=== PATIENT | male | born 1965 | race Two or more races ===

== ENCOUNTER 2025-08-23 13:20 | Day surgery (SDC) | payer MEDICAID, SELFPAY ==
[2025-08-23] VITALS (16 sets, daily range): BP systolic 115–139; BP diastolic 70–99; PULSE 61–72; RESP 12–20; TEMP 36.6–36.8; O2SAT 92–100; BMI 25.0
--- NOTE | 2025-08-23 17:59 | SUR.PHASEII ---
1759: Pt. AAOx4, vitals stable, breathing unlabored, no complaint of pain or nausea, no dressing in place, no active bleed noted, report received from Kellie VELASQUEZ.
--- NOTE | 2025-08-23 18:40 | SUR.PHASEII ---
1840: Pt. AAOx4, vitals stable, breathing unlabored, no complaint of pain or nausea, no dressing in place, no active bleed noted, pt. tolerated sips of water well, pt. ambulated to wheelchair with steady gait and no assist, no complications. Gave discharge instructions to the pt. and his ride using e learning coordinator Jono, both verbalized understanding and had no further questions. Pt. left with all personal belongings.
== END 2025-08-23 18:40 | disposition home or self-care (01) ==
LOC: S2EX 17:55
PROVIDERS: PCP Family Medicine; Referring Provider Specialist; Visit Provider Specialist
PROC: 0DJD8ZZ Inspection of Lower Intestinal Tract, Via Natural or Artificial Opening Endoscopic (ICD-10-PCS; CPT 45378; principal; 2025-08-23 15:30)
DX: C18.9 Malignant neoplasm of colon, unspecified (principal); D12.2 Benign neoplasm of ascending colon; D12.0 Benign neoplasm of cecum; D49.0 Neoplasm of unspecified behavior of digestive system; K64.9 Unspecified hemorrhoids
CPT/HCPCS: 45385; A4649; J1200; J2250; J3010

== ENCOUNTER 2025-09-05 15:11 | Inpatient (IN) | payer MEDICAID, SELFPAY ==
--- NOTE | 2025-09-02 08:42 | PD.SURHP ---
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 He needs resection. He will undergo right hemicolectomy and Ileocolostomy laparoscopic possible open. Informed consent was obtained. Estimated length of stay 2 to 4 days. Past Medical History Past Medical History NEUROLOGIC: Negative Neurological Disorders or Seizures CARDIAC: Positive Cardiac Disorders and Hypertension; Negative Congestive Heart Failure RESPIRATORY: Negative Chronic Obstructive Pulmonary Disease (COPD) GASTROINTESTINAL: Positive Gastrointestinal Disorders, Gastrointestinal Bleed and Colorectal Cancer; Negative Hepatitis GENITOURINARY: Negative Renal Disease MUSCULOSKELETAL: Negative Musculoskeletal Disorders ENT: Negative History of ENT Problems ENDOCRINE: Negative Diabetes Mellitus Type 1 or Diabetes Mellitus Type 2 HEMATOLOGIC: Positive Blood Disorders and Anemia OTHER HISTORY: Positive Blood Transfusions and Colorectal Cancer; Negative Blood Transfusion Reaction or Anesthesia Reactions Family History FAMILY HISTORY: Positive Family Cancer; Negative Family Psychiatric Problems, Family Respiratory Disorders, Family Cardiac Disorders, Family Gastrointestinal Problems, Family Genitourinary Problems, Family Endocrine Disorders, Family Reproductive Disorders, Family Musculoskeletal Disorders, Family Surgery or Family Anesthesia Reaction Social History SMOKING STATUS: Never smoker Travel History EBOLA RISK: No Meds Home Medications and Allergies Home Medications ?Medication ?Instructions ?Recorded ?Confirmed ?Type cholecalciferol (vitamin D3) 125 125 mcg PO DAILY 09/02/25 09/05/25 History mcg (5,000 unit) capsule ferrous sulfate 325 mg (65 mg 325 mg PO BID 09/02/25 09/05/25 History iron) tablet (Iron (ferrous sulfate)) Allergies Allergy/AdvReac Type Severity Reaction Status Date / Time No Known Allergies Allergy Verified 09/05/25 06:27 Exam Constitutional Constitutional: no acute distress Routine HEENT Exam Head: Present normocephalic Eye: Present EOMI and PERRL ENT: Present mucous membranes moist Routine Neck Exam Neck: Present supple and trachea midline Routine Chest/Breast/Axilla Exam Chest wall: Absent tenderness or mass Routine Respiratory Exam Respiratory: Present chest non-tender, lungs clear, normal breath sounds and no resp distress; Absent respiratory distress Routine Cardiovascular Exam Cardiovascular: Present RRR Routine Abdominal Exam Abdominal: Present soft and normoactive bowel sounds Routine Extremities Exam Extremities: Present full ROM Routine Skin Exam Skin: Present intact, dry and warm Routine Neurological Exam Neurological: Present alert, oriented X3 and CN II-XII intact Routine Psychiatric Exam Psychiatric: Present normal affect and normal thought process Assessment & Plan Problem List (1) Adenocarcinoma of cecum: Status: Acute Plan Laparoscopic right hemicolectomy possible open. Informed consent was obtained. Quality Measures Quality Measures VTE prophylaxis
--- NOTE | 2025-09-02 09:33 | EKG_ITS ---
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
[2025-09-02 09:45] VITALS: BMI 25.4
[2025-09-02 10:34] LABS: Collection Type, Urine Clean Catch
[2025-09-02 10:59] LABS: Basophils # (Auto) 0.0 Thou/mm3 (0.0-0.2); Basophils % (Auto) 0 % (0-2.5); Eosinophils # (Auto) 0.3 Thou/mm3 (0.0-0.5); Eosinophils % (Auto) 4 % (0-10); Hematocrit 31.2 % (41.0-53.0); Hemoglobin 9.5 g/dL (13.5-16.0); Immature Granulocytes Auto 0.02 Thou/mm3 (0.00-0.00); Lymphocytes # (Auto) 1.5 Thou/mm3 (1.0-4.8); Lymphocytes % (Auto) 19 % (10-50); Mean Corpuscular HGB Conc 30.4 g/dl (31.0-37.0); Mean Corpuscular Hemoglobin 24.7 pg (25.0-35.0); Mean Corpuscular Volume 81 fL (80-100); Monocytes # (Auto) 0.6 Thou/mm3 (0.0-0.8); Monocytes % (Auto) 8 % (0-12); Neutrophils # (Auto) 5.4 Thou/mm3 (1.8-7.7); Neutrophils % (Auto) 69 % (37-80); Nucleated Red Blood Cell # 0.00 Thou/mm3 (0.00-0.00); Nucleated Red Blood Cell % 0 /100 WBC (0); Platelet Count 404 Thou/mm3 (140-440); RDW Standard Deviation 61.0 fL (35.1-43.9); Red Blood Count 3.85 Miln/mm3 (4.50-5.90); White Blood Count 7.9 Thou/mm3 (3.8-10.6)
[2025-09-02 11:20] LABS: Alanine Aminotransferase 21 U/L (10-49); Albumin, Serum 4.7 gm/dL (3.5-5.0); Albumin/Globulin Ratio 2.2 (1.2-2.2); Alkaline Phosphatase 105 U/L (46-116); Anion Gap 9 (7-16); Aspartate Amino Transferase 20 U/L (0-34); BUN/Creatinine Ratio 18 Ratio (12-20); Bilirubin,Total 0.3 mg/dL (0.3-1.2); Blood Urea Nitrogen 14 mg/dL (9-23); Calcium 9.0 mg/dL (8.3-10.6); Calcium (Corrected) 9.0 mg/dL (8.5-10.1); Carbon Dioxide 27.3 mMol/L (20.0-31.0); Chloride 108 mMol/L (98-107); Creatinine (Component) 0.8 mg/dL (0.6-1.3); Estimated Creatinine Clearance 96.2 mL/min (>60); Globulin 2.1 gm/dL (2.3-3.5); Glucose 103 mg/dL (74-106); Osmolality,Calculated 287 (275-295); Potassium 4.3 mMol/L (3.4-5.1); Sodium 144 mMol/L (136-145); Total Protein 6.8 gm/dL (5.7-8.2); eGFR > 60 See Note
[2025-09-02 11:29] LABS: Partial Thromboplastin Time 29.6 Seconds (22.0-36.0)
[2025-09-02 11:55] LABS: Bilirubin,Urine Negative (Negative); Blood,Urine Negative (Negative); Clarity,Urine Clear (Clear/Hazy); Color,Urine Lt-Yellow (Lt Yel-Yel); Glucose, Urine Negative (Negative); Ketones,Urine Negative (Negative); Leukocyte Esterase,Urine Negative (Negative); Nitrite,Urine Negative (Negative); PH,Urine 5.5 (5.0-7.0); Protein,Urine Negative (Neg - Trace); RBC,Urine 1 /hpf (0-3); Specific Gravity,Urine 1.010 (1.001-1.035); Squamous Epithelial Cell,Urine < 1 /hpf (0-5); Urobilinogen,Urine Negative mg/dL (0.0-1.0); WBC,Urine < 1 /hpf (0-5)
[2025-09-05] VITALS (16 sets, daily range): BP systolic 122–162; BP diastolic 72–98; PULSE 62–85; RESP 12–95; TEMP 36.1–36.7; O2SAT 92–100; BMI 24.7
--- NOTE | 2025-09-05 07:24 | SUR.PREOP ---
Patient expressed gratitude for prayer before their procedure.
--- NOTE | 2025-09-05 12:03 | SUR.PHASEI ---
1203: Pt. wakes to name then drifts back to sleep, vitals stable, breathing unlabored, no complaint of pain or nausea, dressing to ABD CDI, no active bleed noted, hogan catheter in place draining clear yellow urine, report recieved from MD Garces and Kathryn VELASQUEZ.
[2025-09-05] MEDS: fentaNYL CIT INJ 50 mCg/ML AMP 2ML 25 MCG IVP ×8 (12:14→13:41)
--- NOTE | 2025-09-05 12:20 | ESOP_ITS ---
Date of Procedure 09/05/25 Pre Op Diagnosis Right colon cancer Post Op Diagnosis Same Meckel's Diverticulum Procedure Laproscopic right clolectomy and ileocolostomy. 09/05/2025 Small bowel resection side to side anastomosis Findings This patient jonathan a proximal ascending colon cancer marked by Sommer ink. There was a meckel's diverticulum with a palpable mass.The liver did not show any met astatic lesions. Procedure Description This patient was interviewed in the preoperative area and the procedure was discussed with the patient. The risk benefits and alternatives were discussed with the patient and informed consent is obtained for laparoscopic right colectomy ileocolostomy and open procedure. The patient was taken to the operating room and positioned in the supine position in yellowfin's. General anesthesia was administered in a satisfactory manner. Hernandez catheter is in place. The abdomen is prepped and draped in usual manner. Supraumbilical vertical incision is made and an open laparoscopic procedure is carried out. Balloon cannula is used. 30 degree scope is used. Patient is positioned in the Trendelenburg position with the right side up. Suprapubic and left upper quadrant trocars were introduced. Lysis of adhesions is carried out and the Sommer ink location is identified in send the proximal area of the ascending colon. The omentum is from the transverse colon from the middle of the transverse colon towards the hepatic flexure. [place] hepatic ligaments were divided with harmonic ultrasonic gabriel. The white line is divided in the right paracolic gutter and the cecum and the ascending colon were mobilized medially. The adhesions of the terminal ileum to the retroperitoneum were also divided to mobilize the terminal ileum. After mobilizing the colon in this manner the size of the colon tumor was assessed. The supraumbilical incision was extended upwards and mini laparotomy was carried out. The small bowel and the large bowel and the omentum were exteriorized. The location of the ileal and transverse colon resection site were determined. A LAMBERTO 80 was used to divide the terminal ileum about 8 cm proximal to the ileocecal valve. Similarly the transverse colon was divided to the right side of the middle colic vessel. After that the middle colic artery right branch was ligated and the mesentery was removed to the right of the superior mesenteric artery. The ileocolic artery and right colic artery were individually identified and they were ligated with 0 silk ties and divided. The specimen was removed. After removal of the colon the small bowel was examined and a Meckel's diverticulum was identified. There is a small palpable nodule. The Meckel's diverticulum was resected with a wedge resection of the bowel with LAMBERTO. The intervening mesentery was ligated with 0 silk ties and divided. The Meckel's diverticulum was removed. [id number] functional end-to-end anastomosis was made with a LAMBERTO on the antimesenteric border. The open and of the anastomosis was closed with TA 30 stapler. The small bowel mesentery was closed using 3-0 silk interrupted sutures. Hemostasis was already achieved. After this the small bowel and omentum were reduced in the peritoneal cavity. Functional end-to-end [id number] anastomosis on the antimesenteric border was created with the terminal ileum and the transverse colon. Care was taken to avoid torsion or twisting of the bowel. The anastomosis was created with a LAMBERTO 80. Open and was triangulated and was closed with a TA 30 stapler. Hemostasis was already achieved. The anastomosis was reduced back into the peritoneal cavity. Peritoneal cavity was examined and irrigated hemostasis was already achieved. Laps and instrument counts were obtained they are correct x 2. The linea alba was approximated by 0 PDS continuous sutures. Subtenons tissue with 3-0 chromic and skin by anne marie. The trocar site incisions were closed in 2 layers of 3-0 chromic and anne marie. Patient taught the procedure very well. Anesthesia GETA Drains None. Implants None. Pathology / specimen Other (Right colon with the cancer and Meckel's diverticulum small bowel.) Estimated Blood Loss 100 Condition Stable Disposition PACU Surgeon Duran Abdi MD Surgical Staff Operation Date: 09/05/25 07:30 Case Staff Anesthesiologist: Miguel Garces RN First Assistant: Holly Bartholomew RN emergency room doctor Kathryn VELASQUEZ emergency room doctor Farhana Collier cytopathology technologist
[2025-09-05] MEDS: RINGERS LACTATED 1000 ML 1,000 ML 125 ML IV ×2 (12:57→21:55)
--- NOTE | 2025-09-05 15:20 | SUR.PHASEII ---
1520: Pt. AAOx4, vitals stable, breathing unlabored, complaint of pain 2/10, no complaint of nausea, dressing to ABD CDI, no active bleed noted, hogan catheter in place draining clear yellow urine, pt. tolerated bites of jello and ice chips well, gave report to Shani VELASQUEZ prior to transfer to room 354. Family made aware of transfer to room. Pt. transferred with all personal belongings.
[2025-09-05] MEDS: KETOROLAC INJ 30 MG/ML VIAL IVP ×2 (18:09→23:35)
[2025-09-05] MEDS: ACETAMINOPHEN IVPB 1,000 MG/100 ML VIAL 250 MG IV ×2 (18:09→23:36)
--- NOTE | 2025-09-05 20:15 | PC.NURSE ---
Pt got up to the toilet, tolerated well without any complaints.
[2025-09-05] MEDS: FERROUS SULF 325 MG TABLET PO (20:17)
[2025-09-05] MEDS: GABAPENTIN 100 MG CAPSULE 200 MG PO (20:17)
[2025-09-06] VITALS: BP 138/89; PULSE 77; RESP 18; TEMP 37.2; O2SAT 92
[2025-09-06 04:00] VITALS: BP 133/82; PULSE 67; RESP 18; TEMP 36.6; O2SAT 95
[2025-09-06] MEDS: KETOROLAC INJ 30 MG/ML VIAL IVP ×2 (05:16→11:32)
[2025-09-06] MEDS: ACETAMINOPHEN IVPB 1,000 MG/100 ML VIAL 250 MG IV ×2 (05:17→11:31)
[2025-09-06] MEDS: RINGERS LACTATED 1000 ML 1,000 ML 125 ML IV (05:17)
[2025-09-06 06:54] VITALS: PULSE 78; RESP 20; RESP 95
[2025-09-06 08:00] VITALS: BP 141/78; PULSE 62; RESP 19; TEMP 36.7; O2SAT 95
[2025-09-06] MEDS: GABAPENTIN 100 MG CAPSULE 200 MG PO (08:29)
[2025-09-06] MEDS: CHOLECALCIFEROL (Vitamin D3) 1,000 IU TABLET 5000 IU PO (08:29)
[2025-09-06] MEDS: FERROUS SULF 325 MG TABLET PO (08:30)
[2025-09-06 09:29] LABS: Basophils # (Auto) 0.0 Thou/mm3 (0.0-0.2); Basophils % (Auto) 0 % (0-2.5); Eosinophils # (Auto) 0.0 Thou/mm3 (0.0-0.5); Eosinophils % (Auto) 0 % (0-10); Hematocrit 26.7 % (41.0-53.0); Immature Granulocytes Auto 0.05 Thou/mm3 (0.00-0.00); Lymphocytes # (Auto) 1.0 Thou/mm3 (1.0-4.8); Lymphocytes % (Auto) 8 % (10-50); Mean Corpuscular HGB Conc 31.1 g/dl (31.0-37.0); Mean Corpuscular Hemoglobin 25.4 pg (25.0-35.0); Mean Corpuscular Volume 82 fL (80-100); Monocytes # (Auto) 0.6 Thou/mm3 (0.0-0.8); Monocytes % (Auto) 5 % (0-12); Neutrophils # (Auto) 10.2 Thou/mm3 (1.8-7.7); Neutrophils % (Auto) 86 % (37-80); Nucleated Red Blood Cell # 0.00 Thou/mm3 (0.00-0.00); Nucleated Red Blood Cell % 0 /100 WBC (0); Platelet Count 396 Thou/mm3 (140-440); RDW Standard Deviation 62.3 fL (35.1-43.9); Red Blood Count 3.27 Miln/mm3 (4.50-5.90); White Blood Count 11.8 Thou/mm3 (3.8-10.6)
[2025-09-06 09:42] LABS: Alanine Aminotransferase 14 U/L (10-49); Albumin, Serum 4.1 gm/dL (3.5-5.0); Albumin/Globulin Ratio 2.2 (1.2-2.2); Alkaline Phosphatase 86 U/L (46-116); Anion Gap 10 (7-16); Aspartate Amino Transferase 12 U/L (0-34); BUN/Creatinine Ratio 13 Ratio (12-20); Bilirubin,Total 0.5 mg/dL (0.3-1.2); Blood Urea Nitrogen 12 mg/dL (9-23); Calcium 8.9 mg/dL (8.3-10.6); Calcium (Corrected) 8.9 mg/dL (8.5-10.1); Carbon Dioxide 26.0 mMol/L (20.0-31.0); Chloride 108 mMol/L (98-107); Creatinine (Component) 0.9 mg/dL (0.6-1.3); Estimated Creatinine Clearance 3.2 mL/min (>60); Globulin 1.9 gm/dL (2.3-3.5); Glucose 156 mg/dL (74-106); Magnesium 2.0 mg/dL (1.6-2.6); Osmolality,Calculated 289 (275-295); Potassium 4.3 mMol/L (3.4-5.1); Sodium 144 mMol/L (136-145); Total Protein 6.0 gm/dL (5.7-8.2); eGFR > 60 See Note
[2025-09-06 09:45] LABS: Hemoglobin 8.3 g/dL (13.5-16.0)
[2025-09-06 12:00] VITALS: BP 138/79; PULSE 64; RESP 18; TEMP 37.1; O2SAT 93
--- NOTE | 2025-09-06 12:45 | PD.SURPROG ---
Documentation for date of: 09/06/25 Subjective Subjective Brief History: This 60 years old male had rectal bleeding and was found to have adenocarcinoma in the right colon. He needs resection. He will undergo right hemicolectomy and Ileocolostomy laparoscopic possible open. Informed consent was obtained. Estimated length of stay 2 to 4 days. Progress note: 09/06/2025 Patient is walking and tolerating full liquid diet and is passing flatus. He has minimal pain. He will be discharged home today. Based on pathology reports he will need chemotherapy. Exam Vital Signs Temp Pulse Resp BP Pulse Ox O2 Del Method O2 Flow Rate 98.7 F 64 18 138/79 H 93 L Room Air 2 09/06/25 12:00 09/06/25 12:00 09/06/25 12:00 09/06/25 12:00 09/06/25 12:00 09/06/25 12:00 09/06/25 00:00 Narrative Exam Abdomen is soft and nondistended. The incisions have no drainage and no hyperemia. Cardiopulmonary exam is normal. Exteremities wnl. Assessment & Plan Diagnosis (1) Adenocarcinoma of cecum: Status: Acute (2) Meckel's diverticulum: Status: Acute Plan Discharge home. Follow up with pathology. Follow up in office in 10 days. PROCEDURES: Procedure Date 09/05/25 Procedures Laproscopic right clolectomy and ileocolostomy. 09/05/2025 Small bowel resection side to side anastomosis
--- NOTE | 2025-09-06 12:52 | ESDS_ITS ---
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 He needs resection. He will undergo right hemicolectomy and Ileocolostomy laparoscopic possible open. Informed consent was obtained. Estimated length of stay 2 to 4 days. Progress note: 09/06/2025 Patient is walking and tolerating full liquid diet and is passing flatus. He has minimal pain. He will be discharged home today. Based on pathology reports he will need chemotherapy. Patient was admitted for right colectomy for cancer. Laparoscopic right hemicolectomy was carried out with Ileocolostomy. He was also found to have a Meckle's diverticulum and that was resected. Postoperatively patient is doing well ambulating and tolerating full liquid diet well. He is being Discharged home to be followed up in office in 10 days. Exam Vital Signs Temp Pulse Resp BP Pulse Ox O2 Del Method O2 Flow Rate 98.7 F 64 18 138/79 H 93 L Room Air 2 09/06/25 12:00 09/06/25 12:00 09/06/25 12:00 09/06/25 12:00 09/06/25 12:00 09/06/25 12:00 09/06/25 00:00 Narrative Exam Abdomen soft and nontender and nondistended. Incisions are healing normally. Cardiopulmonary exam is nl. Lower extremities wnl Discharge Plan Plan Patient Disposition: HOME (Self Care) Disposition Comment: Follow up in office in 10 days. Prescriptions/Referrals Prescriptions/Med Rec: New hydrocodone-acetaminophen 10-325 mg tablet 1 tab PO Q6H MDD 4 PRN (Reason: pain) Qty: 20 0RF Continued cholecalciferol (vitamin D3) 125 mcg (5,000 unit) capsule 125 mcg PO DAILY ferrous sulfate [Iron (ferrous sulfate)] 325 mg (65 mg iron) tablet 325 mg PO BID Referrals: Jono Dixon MD [Primary Care Provider] Patient/Caregiver Discharge Instructions Other Discharge Activity Instructions:: May take shower with soap and water keep incision dry after that. Other Discharge Diet Instructions: Full liquid diet for 3 days and then advance to regular diet as tolerated. Print Language: Vietnamese Stand Alone Forms: Yuki Award Info., Patient Portal Info Letter Discharge Order Discharge Orders: Discharge (Routine); Ordered 09/06/25 Ordered By: Duran Abdi PROCEDURES: Procedure Date 09/05/25 Procedures Laproscopic right clolectomy and ileocolostomy. 09/05/2025 Small bowel resection for Meckle's diverticulum and side to side anastomosis 09/05/2025
--- NOTE | 2025-09-06 15:26 | PC.SS ---
SS met with patient regarding his d/c plan. Pt is alert/oriented. Pt was admitted for Post OP, Right Himicolectomy. Pt confirmed demographic and contact information is correct on facesheet. Pt resides with . Pt ambulates independently without assistance or DME. Pt is ok with all ADLs. Patient?s pharmacy of choice is [facility] in [place]. Pt named his , Farhana Edwards medical decision maker if he is unable. Patient?s choice is to return home upon d/c. Pt followed up with PCP 3 weeks ago. Family will provide transportation home. D/C plan: Return home Next of Kin: Farhana Edwards, , phone# [phone] PCP: Dr. Jono Dixon Address: Correct on facesheet
== END 2025-09-06 14:43 | disposition home or self-care (01) | DRG 231 ==
LOC: S3NX 15:27
PROVIDERS: Admitting Provider Specialist; PCP Family Medicine; Referring Provider Specialist; Visit Provider Specialist
PROC: 0DTF4ZZ Resection of Right Large Intestine, Percutaneous Endoscopic Approach (ICD-10-PCS; CPT 49320; principal; 2025-09-05 07:30)
DX: C18.2 Malignant neoplasm of ascending colon (principal); Q43.0 Meckel's diverticulum (displaced) (hypertrophic); C18.0 Malignant neoplasm of cecum; K66.0 Peritoneal adhesions (postprocedural) (postinfection)
CPT/HCPCS: 36415; 80053; 81001; 83735; 85025; 85730; 93005; 94664; A4649; J0131; J0461; J0694; J1100; J1885; J2250; J2371; J2405; J2704; J3010; J3490; J7120; A9270